=== PATIENT | male | born 1960 | race Caucasian/White ===

== ENCOUNTER 2019-08-01 11:59 | Emergency (ER) | payer OTHER ==
[~2019-08-01] VITALS: Ht 180.3 cm; Wt 106.4 kg
[~2019-08-01 11:59] MED LIST: ? B/P MED; ASPIR 8181 MG; AZITHROMYCIN 2250 MG; CRESTOR PO; HYDROCODON-ACE1 EAC7 PO; INDOMETHACIN 2525 MG PO
[2019-08-01] MEDS ORDERED: TOPROL XL50 MG PO (12:13)
[2019-08-01] MEDS ORDERED: MOBIC7.5 MG PO (12:20)
[2019-08-01] MEDS ORDERED: ISOSORBIDE MONO30 M1 PO (12:21)
[2019-08-01] MEDS ORDERED: REPATHA SU140 MG/1 M SUBQ (12:21)
[2019-08-01] MEDS ORDERED: LIPITOR20 MG PO (12:21)
[2019-08-01] MEDS ORDERED: METFORMIN HCL500 M3 PO (12:22)
[2019-08-01] MEDS ORDERED: LISINOPRIL2.5 MG PO (12:22)
[2019-08-01] MEDS ORDERED: FISH OIL 1,001000 M3 PO (12:22)
[2019-08-01] MEDS ORDERED: ALLOPURINOL 10100 M3 PO (12:23)
[2019-08-01 12:55] LABS: CALCIUM 8.6 mg/dL (8.5-10.1); POTASSIUM 4.1 mmol/L (3.5-5.1)
[2019-08-01 13:07] LABS: ALBUMIN 3.7 g/dL (3.4-5.0); TOTAL BILIRUBIN 1.1 mg/dL (<0.1-1.0)
[2019-08-01 13:12] LABS: ABSOLUTE BASOPHILS 0.1 thou/uL (0.0-0.2); ABSOLUTE EOSINOPHILS 0.2 thou/uL (0.0-0.7); ABSOLUTE LYMPHOCYTES 2.1 thou/uL (0.8-5.3); ABSOLUTE MONOCYTES 1.2 thou/uL (0.0-1.2); ABSOLUTE NEUTROPHILS 8.6 thou/uL (1.6-8.1); BASOPHILS 1.2 %; EOSINOPHILS 1.5 %; HEMATOCRIT 43.7 % (42.0-52.0); HEMOGLOBIN 15.2 gm/dL (14.0-18.0); MCH 31.4 pg (26.0-34.0); MCHC 34.7 g/dL (28.0-37.0); MCV 90.5 fL (80.0-100.0); MONOCYTES 9.8 %; MPV 8.1 fl. (7.2-11.1); NUCLEATED RBCS 0 /100WBC; PLATELET COUNT* 209 thou/uL (150-400); POLYS 70.5 %; RBC 4.83 mil/uL (4.50-6.00); RDW-CV 13.9 % (10.5-14.5); WBC 12.1 thou/uL (4.0-11.0)
[2019-08-01] MEDS ORDERED: ZOFRAN ODT4 MG PO (15:09)
[2019-08-01] MEDS ORDERED: HYDROCODON-ACE1 EAC7 PO (15:09)
[2019-08-01] MEDS ORDERED: CIPROFLOXACIN500 M1 PO (15:09)
[2019-08-01] MEDS ORDERED: FLAGYL500 M1 PO (15:09)
[2019-08-01 15:23] VITALS: BP 118/79
== END 2019-08-01 15:24 | disposition home or self-care (01) ==
LOC: M.ERS 11:59
PROVIDERS: Personal Emergency Response Attendant
DX: K57.32 Diverticulitis of large intestine without perforation or abscess without bleeding (principal); I10 Essential (primary) hypertension; I25.10 Atherosclerotic heart disease of native coronary artery without angina pectoris; E11.9 Type 2 diabetes mellitus without complications; E78.5 Hyperlipidemia, unspecified; E66.9 Obesity, unspecified; M10.9 Gout, unspecified; G47.30 Sleep apnea, unspecified; Z68.32 Body mass index [BMI] 32.0-32.9, adult; Z90.49 Acquired absence of other specified parts of digestive tract